=== PATIENT | female | born 1990 | race Caucasian/White ===

== ENCOUNTER 2016-09-20 09:46 | Inpatient (IN) ==
[2016-09-20 09:54] VITALS: BMI 28.1
--- NOTE | 2016-09-20 10:02 | ED.PDOC ---
General ED Provider: Dr. GOYO VIEIRA JR Chief Complaint: Back Pain Stated Complaint: my kidneys--pain with urination--fever off and on-- cough hoarse voice--chest hurts cough[End]2 weeks 97.4 93 20 95% 119/69 03/08 Time Seen by Physician: 10:00 Mode of Arrival: Walk-In Information Source: Patient Exam Limitations: No limitations Nursing and Triage Documentation Reviewed and Agree: No Review of Systems - Review Of Systems Constitutional: Reports: Malaise, Weakness Eyes: Reports: No symptoms Ears, Nose, Mouth, Throat: Reports: No symptoms Respiratory: Reports: Cough, Short of air Cardiac: Reports: Chest pain GI: Reports: Abdominal pain, Nausea : Reports: No symptoms Musculoskeletal: Reports: Back pain, Muscle pain Skin: Reports: No symptoms Neurological: Reports: No symptoms Endocrine: Reports: No symptoms Hematologic/Lymphatic: Reports: No symptoms All Other Systems: Other Past Medical History - Past Medical History Previously Healthy: Yes Endocrine: Reports: None Cardiovascular: Reports: None Respiratory: Reports: None Hematological: Reports: None Gastrointestinal: Reports: None Genitourinary: Reports: None Neuro/Psych: Reports: None Musculoskeletal: Reports: None Cancer: Reports: None Last Menstrual Period: now - Surgical History General Surgical History: Reports: Appendectomy, Cholecystectomy, Other (cyst from throat removed) - Family History Family History: Reports: Unknown - Social History Smoking Status: Current every day smoker, Heavy tobacco smoker Alcohol Screening: None Physical Exam - Physical Exam Appearance: Ill-appearing Pain Distress: Moderate Eyes: REYNALDO, EOMI, Conjunctiva clear ENT: Ears normal, Nose normal, Oropharynx normal Neck: Supple Respiratory: Airway patent, Breath sounds diminished, Rhonchi Cardiovascular: RRR, Pulses normal, No rub, No murmur GI/: Soft, No masses, Bowel sounds normal, Tender Musculoskeletal: Normal strength, ROM intact, No edema, No calf tenderness Skin: Warm, Dry, Normal color Neurological: Sensation intact, Motor intact, Reflexes intact, Cranial nerves intact, Alert, Oriented Psychiatric: Anxious Interpretation - Radiology Interpretation Radiology Interpretation By: Radiologist Radiology Results: No acute changes Exam Interpreted: CXR Critical Care Note - Critical Care Note Total Time (mins): 0 Course - Course Hematology/Chemistry: 09/20/16 13:20 09/20/16 13:20 Orders, Labs, Meds: Lab Review 09/20/16 09/20/16 09:55 13:20 WBC 8.79 RBC 3.58 L Hgb 10.9 L Hct 32.6 L MCV 91.1 MCH 30.4 MCHC 33.4 RDW Coeff of Thea 12.6 Plt Count 329 Neutrophils % (Manual) 44.0 Lymphocytes % (Manual) 51.0 H Monocytes % (Manual) 3.0 Eosinophils % (Manual) 2.0 D-Dimer 0.32 Sodium 141 Potassium 3.3 L Chloride 106 Carbon Dioxide 23 Anion Gap 15.3 BUN 7 Creatinine 0.69 Estimated GFR (MDRD) 103.00 BUN/Creatinine Ratio 10.14 Glucose 90 Calcium 8.8 Total Bilirubin 0.29 AST 16 ALT 16 Alkaline Phosphatase 66 Total Protein 6.6 Albumin 3.6 Globulin 3.0 Albumin/Globulin Ratio 1.20 Procalcitonin 0.06 Urine Color Yellow Urine Clarity Clear Urine pH 6.0 Ur Specific [place] >=1.030 Urine Protein 2+ Urine Glucose (UA) Negative Urine Ketones Trace Urine Blood 3+ Urine Nitrite Negative Urine Bilirubin 1+ Urine Urobilinogen 1.0 Ur Leukocyte Esterase Negative Urine Microscopic RBC 10-20 Urine Microscopic WBC 2-5 Ur Squamous Epith Cells 10-20 Amorphous Sediment 1+ Urine Bacteria Trace Urine Mucus 1+ Urine Test Negative Urine Opiates Screen Positive Ur Oxycodone Screen Positive Urine Methadone Screen Negative Ur Propoxyphene Screen Negative Ur Barbiturates Screen Negative U Tricyclic Antidepress Negative Ur Phencyclidine Scrn Negative Ur Amphetamine Screen Positive U Methamphetamines Scrn Positive U Benzodiazepines Scrn Positive Urine Cocaine Screen Negative U Cannabinoids Screen Positive Orders Category Date Time Status ADMIT PATIENT INPATIENT .TO [facility] (MONITORED BED) ADMISSION 09/20/16 13: 10 Active NEBULIZER TREATMENT Routine CARDIO 09/20/16 13:16 Active ACTIVITY .Early Mobilization for VTE Prevention CARE 09/20/16 13:10 Active ACTIVITY .Up ad Milana CARE 09/20/16 13:10 Completed INTAKE & OUTPUT Q8HR CARE 09/20/16 13:10 Active TELEMETRY MONITORING TELE CARE 09/20/16 13:11 Active VITAL SIGNS Q8HR CARE 09/20/16 13:10 Completed REGULAR DIET DIETARY 09/20/16 Dinner Ordered ED IV/MEDIPORT/POWERPORT .ONCE EMERGENCY 09/20/16 13:06 Active BLOOD CULTURE Stat LAB 09/20/16 13:20 Received CBC W/ AUTO DIFF DAILY@0600 LAB 09/21/16 06:00 Ordered CBC W/ AUTO DIFF DAILY@0600 LAB 09/22/16 06:00 Ordered CBC W/ AUTO DIFF DAILY@0600 LAB 09/23/16 06:00 Ordered CBC W/ AUTO DIFF DAILY@0600 LAB 09/24/16 06:00 Ordered CBC W/ AUTO DIFF DAILY@0600 LAB 09/25/16 06:00 Ordered CBC W/ AUTO DIFF DAILY@0600 LAB 09/26/16 06:00 Ordered CBC W/ AUTO DIFF DAILY@0600 LAB 09/27/16 06:00 Ordered CBC W/ AUTO DIFF DAILY@0600 LAB 09/28/16 06:00 Ordered CBC W/ AUTO DIFF DAILY@0600 LAB 09/29/16 06:00 Ordered CBC W/ AUTO DIFF DAILY@0600 LAB 09/30/16 06:00 Ordered CBC W/ AUTO DIFF DAILY@0600 LAB 10/01/16 06:00 Ordered CBC W/ AUTO DIFF DAILY@0600 LAB 10/02/16 06:00 Ordered CBC W/ AUTO DIFF DAILY@0600 LAB 10/03/16 06:00 Ordered CBC W/ AUTO DIFF DAILY@0600 LAB 10/04/16 06:00 Ordered CBC W/ AUTO DIFF DAILY@0600 LAB 10/05/16 06:00 Ordered CBC W/ AUTO DIFF DAILY@0600 LAB 10/06/16 06:00 Ordered CBC W/ AUTO DIFF DAILY@0600 LAB 10/07/16 06:00 Ordered CBC W/ AUTO DIFF DAILY@0600 LAB 10/08/16 06:00 Ordered CBC W/ AUTO DIFF DAILY@0600 LAB 10/09/16 06:00 Ordered CBC W/ AUTO DIFF DAILY@0600 LAB 10/10/16 06:00 Ordered CBC W/ AUTO DIFF Stat LAB 09/20/16 13:20 Completed COMPREHENSIVE METABOLIC PANEL DAILY@0600 LAB 09/21/16 06:00 Ordered COMPREHENSIVE METABOLIC PANEL DAILY@0600 LAB 09/22/16 06:00 Ordered COMPREHENSIVE METABOLIC PANEL DAILY@0600 LAB 09/23/16 06:00 Ordered COMPREHENSIVE METABOLIC PANEL DAILY@0600 LAB 09/24/16 06:00 Ordered COMPREHENSIVE METABOLIC PANEL DAILY@0600 LAB 09/25/16 06:00 Ordered COMPREHENSIVE METABOLIC PANEL DAILY@0600 LAB 09/26/16 06:00 Ordered COMPREHENSIVE METABOLIC PANEL DAILY@0600 LAB 09/27/16 06:00 Ordered COMPREHENSIVE METABOLIC PANEL DAILY@0600 LAB 09/28/16 06:00 Ordered COMPREHENSIVE METABOLIC PANEL DAILY@0600 LAB 09/29/16 06:00 Ordered COMPREHENSIVE METABOLIC PANEL DAILY@0600 LAB 09/30/16 06:00 Ordered COMPREHENSIVE METABOLIC PANEL DAILY@0600 LAB 10/01/16 06:00 Ordered COMPREHENSIVE METABOLIC PANEL DAILY@0600 LAB 10/02/16 06:00 Ordered COMPREHENSIVE METABOLIC PANEL DAILY@0600 LAB 10/03/16 06:00 Ordered COMPREHENSIVE METABOLIC PANEL DAILY@0600 LAB 10/04/16 06:00 Ordered COMPREHENSIVE METABOLIC PANEL DAILY@0600 LAB 10/05/16 06:00 Ordered COMPREHENSIVE METABOLIC PANEL DAILY@0600 LAB 10/06/16 06:00 Ordered COMPREHENSIVE METABOLIC PANEL DAILY@0600 LAB 10/07/16 06:00 Ordered COMPREHENSIVE METABOLIC PANEL DAILY@0600 LAB 10/08/16 06:00 Ordered COMPREHENSIVE METABOLIC PANEL DAILY@0600 LAB 10/09/16 06:00 Ordered COMPREHENSIVE METABOLIC PANEL DAILY@0600 LAB 10/10/16 06:00 Ordered COMPREHENSIVE METABOLIC PANEL Stat LAB 09/20/16 13:20 Completed D-DIMER Stat LAB 09/20/16 13:20 Completed GRAM STAIN Stat LAB 09/20/16 13:20 Received MANUAL DIFFERENTIAL Stat LAB 09/20/16 13:20 Completed PROCALCITONIN Stat LAB 09/20/16 13:20 Completed UA [URINALYSIS C & S IF INDICATED] Stat LAB 09/20/16 09:55 Completed URINE Stat LAB 09/20/16 09:55 Completed 0.9 % Sodium Chloride [Saline Flush] MEDS 09/20/16 13:06 Active 1 syr IVF PRN PRN Acetaminophen [Tylenol] MEDS 09/20/16 13:10 Active 650 mg PO Q4H PRN Azithromycin Inj [Zithromax] 500 mg MEDS 09/21/16 09:00 Active 0.9 % Sodium Chloride [Sodium Chloride] 250 ml IV DAILY Azithromycin Inj [Zithromax] 500 mg MEDS 09/20/16 13:09 Discontinued 0.9 % Sodium Chloride [Sodium Chloride] 250 ml IV ONCE Ceftriaxone Sodium [Rocephin] 1 gm MEDS 09/21/16 09:00 Active 0.9 % Sodium Chloride [Sodium Chloride] 100 ml IV DAILY Ceftriaxone Sodium [Rocephin] 1 gm MEDS 09/20/16 13:09 Discontinued 0.9 % Sodium Chloride [Sodium Chloride] 100 ml IV ONCE Guaifenesin/Codeine Phosphate [Robitussin AC Syrup] MEDS 09/20/16 13:09 Discontinued 10 ml PO ONCE STA Hydrocodone/Chlorphen Polis [Tussionex] MEDS 09/20/16 10:15 Discontinued 5 ml PO ONCE STA Ipratropium/Albuterol Neb [Duoneb] MEDS 09/20/16 18:00 Active 1 vial NEB RTQ6H Nicotine 21 mg [Nicoderm 21 mg] MEDS 09/20/16 13:16 Active 1 patch TD DAILY PRN Sodium Chloride 0.9% [Sodium Chloride] 1,000 ml MEDS 09/20/16 13:06 Active IV 100 mls/hr Sodium Chloride 0.9% [Sodium Chloride] 1,000 ml MEDS 09/20/16 13:30 Active IV 75 mls/hr RESUSCITATION STATUS Routine OTHERS 09/20/16 13:10 Ordered CHEST, 2 VIEWS PA & LAT Stat RADS 09/20/16 10:[address] ABDOMEN/PELVIS WO CONTRAST Stat RADS 09/20/16 11:02 Completed Medications Generic Name Dose Route Start Last Admin Trade Name Freq PRN Reason Stop Dose Admin Acetaminophen 650 mg 09/20/16 13:10 09/20/16 15:33 Tylenol PO 650 mg Q4H PRN Administration Mild Pain Albuterol/Ipratropium 1 vial 09/20/16 18:00 09/20/16 17:46 Duoneb NEB 1 vial RTQ6H LUTHER Administration Sodium Chloride 1,000 mls @ 100 mls/hr 09/20/16 13:06 09/20/16 14:03 Sodium Chloride IV 09/20/16 23:05 100 mls/hr .Q10H STA Administration Ceftriaxone Sodium 1 gm/ 100 mls @ 100 mls/hr 09/21/16 09:00 Sodium Chloride IV DAILY LUTHER Sodium Chloride 1,000 mls @ 75 mls/hr 09/20/16 13:30 Sodium Chloride IV .[id number] LUTHER Azithromycin 500 mg/ Sodium 250 mls @ 125 mls/hr 09/21/16 09:00 Chloride IV DAILY LUTHER Nicotine 1 patch 09/20/16 13:16 Nicoderm 21 Mg TD DAILY PRN Nicotine Craving Sodium Chloride 1 syr 09/20/16 13:06 09/20/16 14:03 Saline Flush IVF 1 syr PRN PRN Administration To flush IV Discontinued Medications Generic Name Dose Route Start Last Admin Trade Name Alysa PRN Reason Stop Dose Admin Chlorphenir/Hydrocodone Polistirex 5 ml 09/20/16 10:15 09/20/16 10:24 Tussionex PO 09/20/16 10:16 5 ml ONCE STA Administration Guaifenesin/Codeine Phosphate 10 ml 09/20/16 13:09 09/20/16 15:32 Robitussin Ac Syrup PO 09/20/16 13:10 10 ml ONCE STA Administration Azithromycin 500 mg/ Sodium 250 mls @ 125 mls/hr 09/20/16 13:09 09/20/16 15: 37 Chloride IV 09/20/16 15:08 125 mls/hr ONCE STA Administration Ceftriaxone Sodium 1 gm/ 100 mls @ 100 mls/hr 09/20/16 13:09 09/20/16 14:02 Sodium Chloride IV 09/20/16 14:08 100 mls/hr ONCE STA Administration Vital Signs: Temp Pulse Resp BP Pulse Ox 09/20/16 09:47 97.4 F L 93 H 20 119/69 95 Departure - Departure Time of Disposition: 12:28 Disposition: ADMITTED INPATIENT Discharge Problem: Pneumonia Condition: Fair Pt referred to PMD for follow-up: Yes Allergies/Adverse Reactions: Allergies No Known Allergies Allergy (Unverified 09/20/16 09:54)
[2016-09-20] MEDS ORDERED: TUSSIONEX PO STA (10:15)
[2016-09-20 10:31] LABS: BILIRUBIN,URINE 1+ (NEGATIVE); KETONES,URINE Trace (NEGATIVE); LEUKOCYTE ESTERASE ,URINE Negative (NEGATIVE); NITRITE,URINE Negative (NEGATIVE); PROTEIN,URINE 2+ (NEGATIVE); URINE PREGNANCY INTERNAL QC INTERNAL QC VALID; URINE, BLOOD 3+ (NEGATIVE)
[2016-09-20 10:33] LABS: ADD URINE MICROSCOPIC YES
[2016-09-20 10:34] LABS: BACTERIA,URINE TRACE (NOT PRESENT)
--- NOTE | 2016-09-20 10:42 | DI ---
Examination: Two radiographic images of the chest. Comparison: None available. Reason for study: Cough. FINDINGS: No pneumothorax, pleural effusion, or focal consolidation. The cardiac silhouette is not enlarged. Impression: No acute cardiopulmonary findings.
--- NOTE | 2016-09-20 11:57 | CT ---
EXAM: CT Abdomen without contrast. CT Pelvis without contrast. HISTORY: Bilateral flank pain. Hematuria. COMPARISON: None available. TECHNIQUE: Multiple axial images of the abdomen and pelvis were obtained without intravenous contra st. Images were reformatted in the coronal plane. FINDINGS: Please note that evaluation of the abdominal and pelvic structures is limited due to lack of intravenous contrast. Small foci of ground-glass opacities seen in both lung bases. No acute osseous abnormality identifi ed. Gallbladder is absent. The liver, pancreas, spleen, and adrenal glands demonstrate normal contour. Nonobstructing bilateral renal calculi are present. The largest stone measuring up to 0.3 cm on th e left. No hydronephrosis or perinephric inflammation detected. No ureteral or bladder calculi are seen. Bladder appears unremarkable. The bowel is normal in course and caliber without evidence for obstruction or inflammatory process. Suspect prior appendectomy. Uterus demonstrates normal contour. Suspect prior tubal ligation. No nspecific mesenteric lymph nodes are present. No free fluid or free air identified. Small fat-cont aining umbilical hernia noted. IMPRESSION: 1. Bilateral nephrolithiasis without obstructive uropathy. 2. Mild bibasilar ground-glass opacities which could represent atelectasis or pneumonitis.
[2016-09-20] MEDS ORDERED: SODIUM CHLORIDE 1,000 ML IV STA (13:06)
[2016-09-20] MEDS ORDERED: ZITHROMAX 500 MG in SODIUM CHLORIDE 250 ML IV STA (13:09)
[2016-09-20] MEDS ORDERED: ROCEPHIN 1 GM in SODIUM CHLORIDE 100 ML IV STA (13:09)
[2016-09-20] MEDS ORDERED: ROBITUSSIN AC SYRUP PO STA (13:09)
[2016-09-20] MEDS ORDERED: NICODERM 21 MG TD PRN (13:16)
[2016-09-20 13:30] LABS: HEMATOCRIT 32.6 % (37.0-47.0); HEMOGLOBIN 10.9 g/dl (12.0-16.0); MEAN CORPUSCULAR HEMOGLOBIN 30.4 pg (27.0-31.0); MEAN CORPUSCULAR HGB CONC 33.4 (31.8-35.4); MEAN CORPUSCULAR VOLUME 91.1 fl (81.0-99.0); PLATELET COUNT 329 10^3/uL (140-440); RED BLOOD COUNT 3.58 10^6/ul (4.20-5.40); WHITE BLOOD COUNT 8.79 K/ul (4.6-10.2)
[2016-09-20 13:35] LABS: ANISOCYTOSIS NOT PRESENT (NOT PRESENT)
[2016-09-20 13:49] LABS: ALBUMIN 3.6 g/dL (3.4-5.0); ALBUMIN/GLOBULIN RATIO 1.2; ANION GAP 15.3; BILIRUBIN,TOTAL 0.29 mg/dL (0.00-1.20); BUN/CREATININE RATIO 10.14; CALCIUM 8.8 mg/dL (8.2-10.2); CREATININE 0.69 mg/dL (0.60-1.30); POTASSIUM 3.3 mmol/L (3.5-5.10); TOTAL PROTEIN 6.6 g/dL (6.4-8.2)
[2016-09-20] MEDS ORDERED: ROCEPHIN ONE (13:55)
[2016-09-20] MEDS: TYLENOL PO PRN ×2 (15:33→21:02)
[2016-09-20] MEDS: DUONEB NEB SCH ×2 (17:46→23:04)
[2016-09-20 19:05] LABS: COCAIN SCREEN,URINE NEGATIVE (NEGATIVE)
[2016-09-20 20:10] LABS: BILIRUBIN,URINE Negative (NEGATIVE); KETONES,URINE Trace (NEGATIVE); LEUKOCYTE ESTERASE ,URINE Negative (NEGATIVE); NITRITE,URINE Negative (NEGATIVE); PROTEIN,URINE 1+ (NEGATIVE); URINE, BLOOD Trace-intact (NEGATIVE)
[2016-09-20 20:16] LABS: ADD URINE MICROSCOPIC YES
[2016-09-20 20:21] LABS: COCAIN SCREEN,URINE NEGATIVE (NEGATIVE)
[2016-09-20 20:32] LABS: BACTERIA,URINE TRACE (NOT PRESENT)
[2016-09-21] MEDS: SODIUM CHLORIDE 1,000 ML IV SCH ×4 (04:00→22:35)
[2016-09-21] MEDS: DUONEB NEB SCH ×4 (05:17→23:16)
[2016-09-21 05:58] LABS: BASOPHILS # (AUTO) 0.1 K/uL (0-0.2); BASOPHILS % (AUTO) 0.7 % (0.0-3.0); EOSINOPHILS # (AUTO) 0.2 K/ul (0.0-0.7); EOSINOPHILS % (AUTO) 2.3 % (0.0-7.0); HEMATOCRIT 30.7 % (37.0-47.0); HEMOGLOBIN 10.2 g/dl (12.0-16.0); IMMATURE GRANULOCYTE % (AUTO) 0.3 % (0.0-5.0); LYMPHOCYTES # (AUTO) 2.8 K/uL (0.60-3.4); LYMPHOCYTES % (AUTO) 36.8 (10.0-50.0); MEAN CORPUSCULAR HEMOGLOBIN 30.3 pg (27.0-31.0); MEAN CORPUSCULAR HGB CONC 33.2 (31.8-35.4); MEAN CORPUSCULAR VOLUME 91.1 fl (81.0-99.0); MONOCYTES # (AUTO) 0.5 K/uL (0.4-2.0); MONOCYTES % (AUTO) 6.9 (0-10); NEUTROPHILS # (AUTO) 4.1 K/ul (2.0-6.9); PLATELET COUNT 307 10^3/uL (140-440); RED BLOOD COUNT 3.37 10^6/ul (4.20-5.40); WHITE BLOOD COUNT 7.66 K/ul (4.6-10.2)
[2016-09-21 06:10] LABS: ALBUMIN 3.1 g/dL (3.4-5.0); ALBUMIN/GLOBULIN RATIO 1.15; ANION GAP 11.7; BILIRUBIN,TOTAL 0.32 mg/dL (0.00-1.20); BUN/CREATININE RATIO 11.11; CALCIUM 8.3 mg/dL (8.2-10.2); CREATININE 0.63 mg/dL (0.60-1.30); POTASSIUM 3.7 mmol/L (3.5-5.10); TOTAL PROTEIN 5.8 g/dL (6.4-8.2)
[2016-09-21] MEDS: ROCEPHIN 1 GM in SODIUM CHLORIDE 100 ML IV SCH (09:13)
[2016-09-21] MEDS: ZITHROMAX 500 MG in SODIUM CHLORIDE 250 ML IV SCH (10:10)
--- NOTE | 2016-09-21 13:56 | PN ---
DATE OF VISIT: 09/20/16 SUBJECTIVE: Urine drug screen was done and used the urine from the emergency room. The urine drug screen with positive opioids, amphetamine and methamphetamine, positive for benzo and cannabinoids. There was not enough urine to send for quantitative determination. I ordered another urine to be collect for repeat urine drug screen. A blood sample will be sent for quantitative determination. This patient noted that she is not on any medication and denied any use of medications that had not been prescribed. JAIDEN
--- NOTE | 2016-09-21 14:43 | HP ---
CHIEF COMPLAINT: 1. Lower back pain about L4 level with no particular radiation. It is just across the back. 2. Cough. 3. Some burning on urination. HISTORY OF PRESENT ILLNESS: The patient claimed to have been experiencing pain across the back with no radiation towards the front since about two weeks ago, as well as burning on urination. The patient had no significant frequency. The patient, about a week and a half ago, claimed to have begun coughing with some hoarseness. The cough does produce soreness in the chest wall in the course of cough and it is frequent. The patient is a smoker and had been smoking for years. The patient presented to the emergency room and was evaluated by Dr. Robb. The tests consisted of a CBC showing moderate anemia 10.9 gram hemoglobin, 32.69 hematocrit. D-Dimer 0.32. Electrolytes with slightly lower potassium at 3.3. GFR 103. The rest of the chemistries are normal. Procalcitonin is 0.06. Urinalysis abnormal, but the patient began her menstrual cycle two days ago and it has a specific gravity greater than 1.030. Protein 2+, trace ketones, urine blood 3+, negative nitrite, 10-20 RBC. WBC 2- 5. Squamous epithelial 10-20, leukocyte esterase negative. Bacteria trace. Urine test negative. The patient claimed to have had a regular menstrual cycle and the last cycle was also a month ago. Chest x-ray showed no acute cardiopulmonary findings. CT scan of the abdomen and pelvis without contrast because of the pain and the pain actually is in the lower lumbar area, not in the flank. I did ask the patient to point out where the pain is. The hematuria is also questionable. The CT did show renal calculi, but not in the ureter or pelvis. The largest is 3 tenths of a cm or 3 mm. Both bases have some ground glass opacities. This could be atelectasis or pneumonitis. This patient does not have any fever at all. The patient was admitted because of these findings of questionable pneumonitis. PAST PERSONAL HISTORY: The patient had two histories of pneumonitis. Previous appendectomy and cholecystectomy and removal of a cyst in the throat. He also had previous hemorrhoidectomy. She had tubal ligation and frequent urinary tract infection. She had ventilation tubes of both ears. SOCIAL HISTORY: The patient is single and is III, Para III, previous tubal ligation and smokes 1 and 1/2 packs of cigarettes a day. She denied any alcohol use or substance abuse. HOME MEDICATIONS: Prior to this admission were none. ALLERGIES: No known drug allergies. REVIEW OF SYSTEMS: CONSTITUTIONAL: The patient is alert with no fever or chills and with no significant fatigue. GRAPHIC ARTIST: Denies any headaches. No history of seizure or syncopal episodes and no history of gait abnormalities. VISUAL: Denies any blurred vision, double vision or transient loss of vision. AUDITORY: Hearing is adequate. Denies any dizziness and pain or drainage in both ears. This patient had previous ventilation tubes inserted when she was young. RESPIRATORY: The patient had been coughing for the last week and a half and is productive and gurgling. CARDIOVASCULAR: Denies any chest pain or chest tightness. GASTROINTESTINAL: Denies any nausea or anorexia or dysphagia or abdominal pain. GENITOURINARY: The patient claims to have some burning on urination for the last two weeks and back pain, lower lumbar area about L4 level and the pain is just across the back with no radiation to the flank or anterior abdomen. ENDOCRINE: Negative. INTEGUMENT: No rash or pruritus. HEMATOLOGIC: No history of prolonged bleeding. PSYCHIATRIC: Affect appears to be okay. The patient, however, is not cooperative with the studies needed to be done. I ordered a catheterized urine , since she is complaining of urinary symptoms and she is on her menstrual cycle and we were trying to get a good specimen catheterized midstream to define whether she does indeed have problems in the urinary tract, bladder or urethra. I did explain to the patient in the presence of her computer forensics examiner on the importance of doing that. I told her that if she just came in for cough then I would not ask for a catheterized urine, but since she has that problem and she has her menstrual cycle that we would like to get a good specimen to make some distinction whether the problem is coming from the bladder, kidneys or urethra. PHYSICAL EXAMINATION: GENERAL: We have a 26 year old female , III, Para III admitted to the hospital because of questionable pneumonitis, bilateral basal small ground glass opacities. VITAL SIGNS: Temperature 97.4, pulse 93, blood pressure 119/69, respiratory rate 20, oxygen saturation 95 at room air. HEAD: Unremarkable. FACE: Symmetrical and equal with no facial weakness. No remarkable tenderness in the frontal or maxillary sinus areas to palpation under pressure. EYES: Pupils equal/reactive to light. Conjunctivae somewhat pale. Sclerae not icteric. MOUTH: Unremarkable. THROAT: No inflammation, tumors or exudate. NECK: No masses. No bruit. No tenderness. No rigidity. CHEST: Symmetrical and equal with good expansion and no remarkable tenderness. LUNGS: Breath sounds are heard in both sides with inspiratory squeaks in the right upper lobe. She also has an inspiratory wheeze. HEART: Audible and regular with good tones. No murmurs. ABDOMEN: Soft with no remarkable tenderness and no masses palpable. Bowel sounds are active. It is somewhat sensitive in the suprapubic area to palpation. LOWER EXTREMITIES: Symmetrical and equal with no tenderness in the calf muscles. Pedal pulses are present. UPPER EXTREMITIES: Symmetrical and equal. ASSESSMENT: 1. BILATERAL BASAL PNEUMONITIS, POSSIBLE 2. CHRONIC TOBACCO USE AND ABUSE, PERSISTENT 3. PREVIOUS HISTORIES OF PNEUMONITIS TIMES TWO OR THREE 4. URINARY TRACT INFECTION, POSSIBLE 5. RENAL CALCULUS STILL UP IN THE KIDNEYS MTDD
[2016-09-21 21:41] LABS: COCAIN SCREEN,URINE NEGATIVE (NEGATIVE)
[2016-09-22] MEDS: DUONEB NEB SCH ×2 (05:08→11:23)
[2016-09-22 06:14] LABS: BASOPHILS # (AUTO) 0.1 K/uL (0-0.2); BASOPHILS % (AUTO) 0.9 % (0.0-3.0); EOSINOPHILS # (AUTO) 0.2 K/ul (0.0-0.7); EOSINOPHILS % (AUTO) 3.1 % (0.0-7.0); HEMATOCRIT 30.6 % (37.0-47.0); IMMATURE GRANULOCYTE % (AUTO) 0.3 % (0.0-5.0); LYMPHOCYTES # (AUTO) 3.2 K/uL (0.60-3.4); LYMPHOCYTES % (AUTO) 48.1 (10.0-50.0); MEAN CORPUSCULAR HGB CONC 32.7 (31.8-35.4); MEAN CORPUSCULAR VOLUME 91.9 fl (81.0-99.0); MONOCYTES # (AUTO) 0.5 K/uL (0.4-2.0); MONOCYTES % (AUTO) 7.4 (0-10); NEUTROPHILS # (AUTO) 2.7 K/ul (2.0-6.9); NEUTROPHILS % (AUTO) 40.2; PLATELET COUNT 308 10^3/uL (140-440); RED BLOOD COUNT 3.33 10^6/ul (4.20-5.40); WHITE BLOOD COUNT 6.72 K/ul (4.6-10.2)
--- NOTE | 2016-09-22 08:23 | PN ---
DATE OF VISIT: 09/21/16 SUBJECTIVE: The patient is alert and claims to be feeling better and more cheerful today then yesterday. LUNGS: Clear to auscultation and squeaks in the right upper posterior chest has resolved. HEART: Normal sinus rhythm. LABS: CBC has a normal WBC and the hgb and hct is down further from yesterday. She began with moderate anemia. Potassium is now normal at 3.7. It was 3.3 on admission. I had requested a repeat drug screen for today but I do not have any of the report. It is a urine drug screen, I am just trying to monitor when becomes negative. VITAL SIGNS: Temperature 98.3, pulse 71, blood pressure 122/78, respiratory rate 18, oxygen saturation 98% on room air. I am waiting on the quantitative drug results for this patient before I will discuss the results of the drug screen. JAIDEN
[2016-09-22] MEDS: ROCEPHIN 1 GM in SODIUM CHLORIDE 100 ML IV SCH (09:15)
[2016-09-22] MEDS: ZITHROMAX 500 MG in SODIUM CHLORIDE 250 ML IV SCH (09:47)
[2016-09-22] MEDS: SODIUM CHLORIDE 1,000 ML IV SCH (10:13)
[2016-09-22 14:46] VITALS: BP 167/111; TEMP 97.3
--- NOTE | 2016-09-27 09:33 | DS ---
THE PATIENT LEFT AMA PATIENT IDENTIFICATION: 26 year old female presented to the emergency 09/20/16 at [place] and was admitted to the hospital after a work up because of questionable ground glass opacities at the base, probably atelectasis versus pneumonia. HOSPITAL COURSE: This patient had coughed about a week and a half ago, but no fever. She did complain of pain in the lower lumbar area about L4 with no particular radiation about two weeks ago. The patient's vital signs on presentation to the emergency room had a temperature of 97.4, pulse 93, respiratory rate 20, oxygen saturation 95 at room air, blood pressure 119/69. Pain was rated at 8 in a scale of 1-10. The pain was described as in the back when I talked to her and pointed to the lower lumbar with no radiation to the flank or towards the anterior abdomen. She was also complaining of some burning on urination, but the urinalysis is unremarkable, except for the blood, which is probably due to the menstrual cycle. This patient needed to have a better urine specimen because of the menstrual cycle, but the patient refused urinary catheterization to obtain the specimen. Again, the urinalysis was nitrite negative, leukocyte esterase negative, bacteria trace, urine microscopic 2-5 WBC's, RBC's 2-5. LUNGS: Clear to auscultation in both sides. HEART: Normal sinus rhythm. NECK: No masses and no bruit. ABDOMEN: Soft and nontender. LOWER EXTREMITIES: Essentially symmetrical and equal with no tenderness in the calf muscles. Pedal pulses were present. The patient, while in the hospital, had a repeat CBC showing moderate anemia with normal WBC and normal platelet count. The potassium is now normal at 3.7 from 3.3. The patient had urinary drug screen showing positive for opiates, positive for oxycodone, positive for amphetamines, methamphetamines, benzodiazepines and cannabinoids. The repeat urine drug screen showed essentially the same results, except now the oxycodone is negative. The third repeat the following day showed a negative opiates, negative oxycodone, negative amphetamine, negative methamphetamine, positive benzo and positive cannabinoids. A quantitative blood sample was sent by I still do not have the results. NicoDerm CQ 21 mg was placed daily and was given Azithromycin 500 mg IV daily and Ceftriaxone 1 gram IV daily. DuoNeb nebulizer every 6 hours. The patient on the following day, 09/21/2016, was much more cheerful and smiling and more cooperative. VITAL SIGNS: At 5:43 p.m. showed a temperature of 98.3, pulse 71, blood pressure 122/78, respiratory rate 18, oxygen saturation 98 at room air. The patient's appetite seemed to be acceptable, since she had consumed 100%, 100% and 80% of the meals that she had while in the hospital. Her vital signs this morning showed a normal temperature. Pulse between 78-104. Blood pressure 106/ 73 to 163/111. Respiratory rate between 18 and 20. Oxygen saturation 97 on room air. LUNGS: Clear to auscultation in both sides. The squeaks that were in the right upper lobe is no longer audible. HEART: Audible and regular. I was contacted by the nurse in the early afternoon, about 2 o'clock or there about, telling me that the patient is going to go home and sign out. I did advise the nurse, Racquel, that I will be done at the office somewhere about 4 p.m. or there about, more so that I have another patient that was added to the schedule. I would like for the patient to stay so that I could discuss the instructions. However, if the patient would not stay that she should see her primary provider the next day for further care. The patient, indeed, left the hospital at about the time that the nurse had called me. The time was 3:16 p.m. The reason given that she has to go to work. The patient never mentioned about work yesterday when I saw her during my rounds with the nurse, Zoë. FINAL DIAGNOSES: 1. MILD BIBASILAR GROUND GLASS OPACITIES, ATELECTASIS VERSUS PNEUMONITIS 2. BILATERAL NEPHROLITHIASIS 3. CHRONIC TOBACCO USE AND ABUSE 4. ABNORMAL URINE DRUG SCREEN MTDD
== END 2016-09-22 15:16 | disposition left against medical advice (07) | DRG 194 ==
LOC: ED 09:46 → MEDSURG B 13:48
PROVIDERS: ADMIT General Practice; ATTEND General Practice
DX: J18.9 Pneumonia, unspecified organism (principal); J98.11 Atelectasis; N20.0 Calculus of kidney; M54.5 Low back pain; R82.6 Abnormal urine levels of substances chiefly nonmedicinal as to source; F17.210 Nicotine dependence, cigarettes, uncomplicated; D64.9 Anemia, unspecified; R10.9 Unspecified abdominal pain; R11.0 Nausea; R30.0 Dysuria; Z87.01 Personal history of pneumonia (recurrent)
CPT/HCPCS: 36415; 80053; 80306; 80307; 81001; 81025; 84145; 85007; 85025; 85379; 86710; 87040; 87205; 94640; 96365; 99222; 99232; 99238; 99284

== ENCOUNTER 2016-12-25 20:54 | Emergency (ER) ==
[2016-12-25 21:06] VITALS: BP 147/114; TEMP 97.9; BMI 27.4
[2016-12-25 21:24] LABS: BILIRUBIN,URINE 1+ (NEGATIVE); KETONES,URINE Negative (NEGATIVE); LEUKOCYTE ESTERASE ,URINE Negative (NEGATIVE); NITRITE,URINE Positive (NEGATIVE); PH,URINE 5.5 (5-9); PROTEIN,URINE 2+ (NEGATIVE); URINE, BLOOD 2+ (NEGATIVE)
[2016-12-25 21:25] LABS: URINE PREGNANCY INTERNAL QC INTERNAL QC VALID
[2016-12-25 21:31] LABS: ADD URINE MICROSCOPIC YES
[2016-12-25 21:32] LABS: BACTERIA,URINE 2+ (NOT PRESENT)
--- NOTE | 2016-12-25 21:52 | CT ---
Exam: CT scan of the abdomen pelvis without contrast. Date: 12/25/2016. Comparison: 09/20/2016. HISTORY: Hematuria with right lower abdominal pain. History of renal calculi. TECHNIQUE: Helical scan of the abdomen pelvis was performed without contrast. FINDINGS: The lung bases are clear. The lumbar spine and bony pelvis are within normal limits. The spleen and liver have a uniform attenuation. Cholecystectomy noted. The stomach, pancreas and adrenal glands are normal. There is a 0.4 x 0.2 cm nonobstructing calculus in the midpole region of the left kidney with an additional 1 mm nonobstructing calculus in the lower pole. There is a 0.2 cm intraparenchymal calcification in the lower pole of the right kidney. There is no hydronephrosis . No retroperitoneal adenopathy is present. Aorta does not exceed 3 cm. The small bowel is normal . An appendectomy has been performed. The colon, pelvic sidewall and bladder are normal. There is a small amount of free fluid in the lower right pelvis. Bilateral tubal ligation clips are present . The uterus, rectum inguinal regions are normal. Impression: There is a small amount of free fluid in the lower right pelvis which is nonspecific fi nding and can be related to ovarian cyst rupture, although other etiologies are not excluded. Bilateral nonobstructing nephrolithiasis. Cholecystectomy.
--- NOTE | 2016-12-25 22:10 | ED.PDOC ---
General ED Provider: Dr. HAL LOWRY-ER Chief Complaint: Urinary Problem Stated Complaint: it hurts to pee and i pee blood Time Seen by Physician: 20:55 Mode of Arrival: Walk-In Information Source: Patient Exam Limitations: No limitations Nursing and Triage Documentation Reviewed and Agree: Yes Complaint Exam - UTI Female Complaint/Exam Patient Complains of: Reports: Painful urination, Blood in urine Onset/Duration: a few hour Symptoms Are: Still present Timing: Constant Initial Severity: Mild Current Severity: Moderate Location of Pain: Reports: Suprapubic Patient Rh Status: Unknown Related Surgical History: Reports: Cystoscopy CVA Tenderness: No Suprapubic Tenderness: No Differential Diagnoses: Bladder Dysfunction, Cystitis, Ureteral Calculus Review of Systems - Review Of Systems Constitutional: Reports: No symptoms Eyes: Reports: No symptoms Ears, Nose, Mouth, Throat: Reports: No symptoms Respiratory: Reports: No symptoms Cardiac: Reports: No symptoms GI: Reports: No symptoms : Reports: Dysuria, Hematuria Musculoskeletal: Reports: No symptoms Skin: Reports: No symptoms Neurological: Reports: No symptoms Endocrine: Reports: No symptoms Hematologic/Lymphatic: Reports: No symptoms All Other Systems: Reviewed and Negative Past Medical History - Past Medical History Previously Healthy: Yes Endocrine: Reports: None Cardiovascular: Reports: None Respiratory: Reports: None Hematological: Reports: None Gastrointestinal: Reports: None Genitourinary: Reports: None Neuro/Psych: Reports: None Musculoskeletal: Reports: None Cancer: Reports: None Last Menstrual Period: 2 WEEKS AGO - Surgical History General Surgical History: Reports: Appendectomy, Cholecystectomy, Other (cyst from throat removed) - Family History Family History: Reports: Unknown - Social History Smoking Status: Current every day smoker, Heavy tobacco smoker Hx Substance Use: No Alcohol Screening: None Lives: With family - Immunizations Tetanus Shot up to Date: (UNKNOWN) Physical Exam - Physical Exam Appearance: Well-appearing Pain Distress: Mild Eyes: REYNALDO ENT: Ears normal, Nose normal, Oropharynx normal Neck: Supple Respiratory: Airway patent Cardiovascular: RRR, Pulses normal, No rub, No murmur GI/: Soft, Nontender, No masses, Bowel sounds normal, No Organomegaly Musculoskeletal: Normal strength, ROM intact, No edema, No calf tenderness Skin: Warm, Dry, Normal color Neurological: Sensation intact, Motor intact, Reflexes intact, Cranial nerves intact, Alert, Oriented Psychiatric: Affect appropriate, Mood appropriate Interpretation - Radiology Interpretation Radiology Interpretation By: Radiologist Radiology Results: Negative Exam Interpreted: CT Scan Critical Care Note - Critical Care Note Total Time (mins): 0 Course - Course Orders, Labs, Meds: Lab Review 12/25/16 21:05 Urine Color Yellow Urine Clarity Cloudy Urine pH 5.5 Ur Specific Mo[place] >=1.030 Urine Protein 2+ Urine Glucose (UA) Negative Urine Ketones Negative Urine Blood 2+ Urine Nitrite Positive Urine Bilirubin 1+ Urine Urobilinogen 1.0 Ur Leukocyte Esterase Negative Urine Microscopic RBC 5-10 Urine Microscopic WBC 0-2 Ur Squamous Epith Cells 0-2 Urine Bacteria 2+ Urine Test Negative Orders Category Date Time Status URINALYSIS C & S IF INDICATED Stat LAB 12/25/16 21:05 Completed URINE CULTURE Stat LAB 12/25/16 21:05 Received URINE Stat LAB 12/25/16 21:[address] ABDOMEN/PELVIS WO CONTRAST Stat RADS 12/25/16 21:12 Completed Vital Signs: Temp Pulse Resp BP Pulse Ox 12/25/16 20:55 97.9 F 116 H 18 147/114 H 97 Departure - Departure Time of Disposition: 22:08 Disposition: HOME SELF-CARE Discharge Problem: Urinary tract infectious disease Instructions: Urinary Tract Infection in Women (ED) Condition: Good Pt referred to PMD for follow-up: Yes Additional Instructions: cipro 500mg bid x 7days=--pyridium 200mg tid with food for pauin #6--fluids-- recheck with pcp this week Allergies/Adverse Reactions: Allergies No Known Allergies Allergy (Verified 12/25/16 21:04) Home Medications: Ambulatory Orders 1 [No Reported Medications] 12/25/16 Disposition Discussed With: Patient, Family
== END 2016-12-25 22:10 | disposition home or self-care (01) ==
LOC: ED 20:54
DX: N39.0 Urinary tract infection, site not specified (principal); F17.200 Nicotine dependence, unspecified, uncomplicated
CPT/HCPCS: 81001; 81025; 87086; 87186; 99282